=== PATIENT | female | born 1960 | race Caucasian/White ===

== ENCOUNTER 2019-04-08 14:16 | Emergency (ER) | payer SELFPAY ==
[2019-04-08] MEDS ORDERED: NA CHLORIDE 0.9% 1,000 ML ONE (15:36)
[2019-04-08] MEDS ORDERED: ONDANSETRON 4 MG/2 ML VIAL ONE (15:36)
[2019-04-08 16:07] LABS: Absolute Lymphocytes (CBC) 0.8 K/uL (0.7-4.9); Basophils % 0.2 % (0-1.3); Hematocrit 41.1 % (36.0-45.0); Lymphocytes % 7.6 % (15.3-44.8); MPV 9.2 fL (7.6-11.3)
[2019-04-08 16:10] LABS: Albumin 3.5 g/dL (3.4-5.0); Bilirubin Direct 0.5 mg/dL (0-0.2); Magnesium 2.1 mg/dL (1.8-2.4); Potassium 3.3 mmol/L (3.5-5.1); Protein, Total 6.9 g/dL (6.4-8.2)
--- NOTE | 2019-04-08 16:27 | RAD REPORT ---
EXAM DESCRIPTION: CT - Head Brain Wo Cont - 04/08/2019 4:20 pm CLINICAL HISTORY: Headache COMPARISON: None. TECHNIQUE: Axial 5 mm thick images of the head were obtained without IV contrast. All CT scans are performed using dose optimization technique as appropriate and may include automated exposure control or mA/KV adjustment according to patient size. FINDINGS: No intracranial hemorrhage, mass, edema or shift of mid-line structures. No acute infarcti on changes seen. No abnormal extra-axial fluid collections. No measurable atrophy changes. White jordon er disease is evident. There is evidence for old infarction change at the right head of the caudate. Ventricles are normal. Left side mastoid air cells are opacified. Right-sided mastoid air cells are clear. Partially visuali zed paranasal sinuses are clear. No acute bony findings. IMPRESSION: No hemorrhage, mass or acute intracranial finding. Chronic ischemic change and old infarction changes are evident. Chronic ischemic changes can mask nonhemorrhagic acute infarction. MR brain followup can be obtained if there is ongoing concern for acute ischemia.
--- NOTE | 2019-04-08 16:58 | RAD REPORT ---
EXAM DESCRIPTION: CT - Abdomen Pelvis W Contrast - 04/08/2019 4:29 pm CLINICAL HISTORY: ABD PAIN COMPARISON: None. TECHNIQUE: Biphasic, helical CT imaging of the abdomen and pelvis was performed following 100 ml non -ionic IV contrast. No oral contrast given. All CT scans are performed using dose optimization technique as appropriate and may include automated exposure control or mA/KV adjustment according to patient size. FINDINGS: No suspicious findings in the lung bases. Liver attenuation is borderline to mildly fatty infiltrated. No suspicious liver lesions identified. A low-density 18 millimeter liver masses present of the caudate lobe. This is favored to be a cyst bu t does not meet strict criteria. No portal vein abnormality. Cholecystectomy clips are present. No bi liary tree dilatation. No acute pancreatic finding. A 5 x 3 centimeter low-density mass is present in the anterior spleen. This is mostly fluid attenuati on but does have septations and few calcifications. No change between arterial and venous phase imagi ng. Long-term significance is doubtful. A 3 centimeter left adrenal mass is present. This does not me et strict criteria for adrenal adenoma diagnosis. Normal right renal function is seen with no hydronephrosis. Slightly delayed left renal function is p resent with perinephric stranding. Renal cysts are present. There is mild hydronephrosis secondary to a 3-4 mm near the UVJ. This may be more than 1 stone. No pyelonephritis findings pain. No bladder ab normalities. No dilated bowel loops or bowel wall thickening. No free air, free fluid or inflammatory stranding. No hernia, mass or bulky lymphadenopathy. No suspicious bony findings. No right ovary abnormality identified. Normal-sized uterus is seen. Along the left lateral margin of the uterus there is a 6 x 4 centimeter lobulated soft tissue density mass. A round coarse calcificati on is present in this mass. Along the posterior margin of the mass towards the cul de sac is a 6 x 4 centimeter thin-walled cystic mass. This appears be a contains cystic structure and not free fluid in the cul de sac. No acute bone finding. IMPRESSION: Approximately 3-4 millimeter calcification or stone cluster in the distal ureter near th e UVJ. Obstructing stone causes mild hydronephrosis and slightly delayed left renal function. A 6 centimeter lobulated solid mass in the left adnexa with adjacent 6 centimeter cystic mass identif ied. This is believed to be an ovarian origin solid and cystic mass collection. A separate normal lef t ovary is not seen. Exophytic uterine fibroid with left ovarian cyst would be a possible etiology. N o emergent component identified. This can be re-evaluated on outpatient pelvic sonography as warrante d. A 3 centimeter left adrenal mass is present. This is probably an adenoma but does not meet strict cri teria. 5 centimeter cystic or low-density septated mass in the anterior spleen. Long-term significance is do ubtful. Borderline to mild fatty infiltration of the liver. An 18 millimeter probable cyst is present near th e caudate lobe.
--- NOTE | 2019-04-08 17:13 | EKG ---
Test Date: 2019-04-08 Test Time: 15:33:19 Concrete Bucket Loader: ETELVINA MEASUREMENT RESULTS: Intervals: Rate: 77 ME: 166 QRSD: 94 QT: 432 QTc: 488 [place]: P: 29 ME: 166 QRS: -15 T: 18 INTERPRETIVE STATEMENTS: Normal sinus rhythm Nonspecific ST and T wave abnormality Prolonged QT Abnormal ECG No previous ECG available for comparison Electronically Signed On 04-08-19 17:12:31 CDT by Prem Cornejo
[2019-04-08] MEDS ORDERED: CEFTRIAXONE/SWI 1gm 1 GM/10 ML SYR ONE (17:30)
[2019-04-08] MEDS ORDERED: MAGNESIUM SULFATE 1 gm IVPB 1 GM/100 ML BAG IV ONE (17:30)
[2019-04-08] MEDS ORDERED: TAMSULOSIN 0.4 MG SR CAP ONE (17:30)
[2019-04-08] MEDS ORDERED: KETOROLAC 30 MG/ML INJ ONE (17:30)
[2019-04-08 17:38] LABS: Urine Blood 3+ (NEG); Urine Glucose NEGATIVE (NEG); Urine Protein TRACE (NEG); Urine pH 5.5 (5.0-7.0)
[2019-04-08 17:50] LABS: Urine Bacteria LOADED /HPF (<20); Urine Culture Reflex Order REFLEXED
--- NOTE | 2019-04-08 18:05 | EDPHYS ---
Physician Documentation [facility] Name: Bridget Brock Age: 59 yrs Sex: Female : 1960 Arrival Date: 04/08/2019 Time: 14:19 Bed 13 Private MD: ED Physician Miguel Law HPI: 04/08 15:35 This 59 yrs old Female presents to ER via Ambulatory with complaints of cp Vomiting, Flank Pain, Headache. 15:35 The patient complains of pain to the top of head and forehead. cp 15:35 The patient describes the headache as aching. The patient presents with abdominal pain cp left flank. Onset: The symptoms/episode began/occurred 2 day(s) ago. The patient presents to the emergency department with nausea, that is mild, vomiting, that is intermittent. Possible causes: unknown. The symptoms radiate to left hip. Historical: - Allergies: 14:27 Erythromycin; hb 14:27 Lisinopril; hb - Home Meds: 14:27 None [Active]; hb - PMHx: 14:27 Hypertension; Hypothyroidism; hb - PSHx: 14:27 Cholecystectomy; ; back; hb - Immunization history:: Adult Immunizations up to date. - Social history:: Smoking status: Patient uses tobacco products, smokes one pack cigarettes per day. - Ebola Screening: : No symptoms or risks identified at this time. ROS: 15:38 Constitutional: Positive for chills, Negative for body aches, fever, poor PO intake. cp 15:38 Eyes: Negative for injury, pain, redness, and discharge. cp 15:38 Cardiovascular: Negative for chest pain, edema, palpitations. cp 15:38 ENT: Negative for drainage from ear(s), ear pain, sore throat, difficulty swallowing, cp difficulty handling secretions. 15:38 Respiratory: Negative for cough, shortness of breath, wheezing. 15:38 Abdomen/GI: Positive for abdominal pain, nausea, vomiting, Negative for constipation, anorexia, black/tarry stool, rectal bleeding. 15:38 : Negative for urinary symptoms. 15:38 Neuro: Positive for headache, Negative for altered mental status, dizziness, weakness. 15:38 All other systems are negative. Exam: 15:40 ECG was reviewed by the Attending Physician. cp 15:45 Constitutional: The patient appears in no acute distress, alert, awake, cp non-diaphoretic, non-toxic, well developed, well nourished. 15:45 Head/Face: Normocephalic, atraumatic. cp 15:45 Eyes: Periorbital structures: appear normal, Conjunctiva: normal, no exudate, no injection, Sclera: no appreciated abnormality, Lids and lashes: appear normal, bilaterally. 15:45 ENT: External ear(s): are unremarkable, Ear canal(s): are normal, clear, TM's: dullness, bilaterally, Nose: is normal, Mouth: Lips: moist, Oral mucosa: moist, Posterior pharynx: is normal, airway is patent, no erythema, no exudate, Dental exam: dental caries, that is severe, diffusely, missing teeth, diffusely. 15:45 Neck: ROM/movement: is normal, is supple, without pain, no range of motions limitations, no meningismus, no nuchal rigidity. 15:45 Chest/axilla: Inspection: normal, Palpation: is normal, no crepitus, no tenderness. 15:45 Cardiovascular: Rate: normal, Rhythm: regular, Edema: is not appreciated, JVD: is not appreciated. 15:45 Respiratory: the patient does not display signs of respiratory distress, Respirations: normal, no use of accessory muscles, no retractions, no splinting, no tachypnea, labored breathing, is not present, Breath sounds: are clear throughout, no decreased breath sounds, no stridor, no wheezing. 15:45 Abdomen/GI: Inspection: abdomen appears normal, Bowel sounds: active, all quadrants, Palpation: soft, in all quadrants, voluntary guarding, is not appreciated, involuntary guarding, is not appreciated, very mild tenderness to palpation left side abdomen. 15:45 Back: CVA tenderness, is absent. 15:45 Skin: no rash present. 15:45 Neuro: Orientation: is normal, Mentation: is normal, Cerebellar function: is grossly normal, Motor: moves all fours, strength is normal, Sensation: is normal. Vital Signs: 14:24 BP 182 / 100; Pulse 82; Resp 16; Temp 99.2(TE); Pulse Ox 100% on R/A; Weight 99.79 kg; hb Height 5 ft. 7 in. (170.18 cm); Pain 5/10; 15:54 BP 148 / 90; Pulse 72; Resp 17; Pulse Ox 98% on R/A; tw2 16:42 BP 129 / 92; Pulse 114; Resp 17; Pulse Ox 100% on R/A; tw2 17:44 BP 165 / 87; Pulse 72; Resp 17; Pulse Ox 95% on R/A; tw2 18:49 BP 169 / 90; Pulse 73; Resp 17; Pulse Ox 100% on R/A; tw2 14:24 Body Mass Index 34.46 (99.79 kg, 170.18 cm) hb MDM: 15:29 Patient medically screened. cp 16:00 Differential diagnosis: diverticulitis, meningitis, migraine, non-specific abd pain, cp Pyelonephritis, Ureterolithiasis, urinary tract infection. 18:03 Data reviewed: vital signs, nurses notes, lab test result(s), radiologic studies, CT cp scan, and as a result, I will discharge patient. 18:03 Counseling: I had a detailed discussion with the patient and/or guardian regarding: the cp historical points, exam findings, and any diagnostic results supporting the discharge/admit diagnosis, lab results, radiology results, the need for outpatient follow up, an OB/Gyne specialist, a urologist, to return to the emergency department if symptoms worsen or persist or if there are any questions or concerns that arise at home. Response to treatment: the patient's symptoms have markedly improved after treatment, VSS. Pain improved. Discussed results of CT showing concern for ovarian mass. Will discharge to home for continued monitoring with instructions on need for FAMILY SERVICE COUNSELOR f/u and urology f/u . 04/08 15: Order name: Basic Metabolic Panel; Complete Time: 17:08 cp 04/08 17: Interpretation: Normal except: K 3.3; CL 108; GFR 59. cp 04/08 15:29 Order name: CBC with Diff cp 04/08 17:09 Interpretation: Normal except: RBC 5.00; RDW 16.5; FREDI% 87.6; LYM% 7.6; NEUT A 9.1. cp 04/08 15:29 Order name: Creatinine for Radiology; Complete Time: 17:08 cp 04/08 15:29 Order name: Hepatic Function; Complete Time: 17:08 cp 04/08 17: Interpretation: Normal except: AST 48; BILIT 2.0; BILID 0.5; A/G 1.0. cp 04/08 15:29 Order name: Lipase; Complete Time: 17:08 cp 04/08 15:29 Order name: Urine Microscopic Only; Complete Time: 18:06 cp 04/08 18:06 Interpretation: Normal except: UWBC LOADED; URBC 5-10; UBACT LOADED. cp 04/08 15:29 Order name: CT Head Brain wo Cont; Complete Time: 17:08 cp 04/08 15:29 Order name: CT Abd/Pelvis - IV Contrast Only; Complete Time: 17:08 cp 04/08 15:29 Order name: Magnesium; Complete Time: 17:08 cp 04/08 17:34 Order name: Urine Dipstick--Ancillary (enter results); Complete Time: 18:06 eb 04/08 18:06 Interpretation: Normal except: UBLD 3+; U NIT POSITIVE; UESTR 3+. 04/08 17:52 Order name: Urine Culture EDIA 04/08 15:29 Order name: IV Saline Lock; Complete Time: 15:46 cp 04/08 15:29 Order name: Labs collected and sent; Complete Time: 15:47 cp 04/08 15:29 Order name: Urine Dipstick-Ancillary (obtain specimen); Complete Time: 17:44 cp 04/08 15:29 Order name: EKG; Complete Time: 15:30 cp 04/08 15:29 Order name: EKG - Nurse/Tech; Complete Time: 15:34 cp EC:40 Rate is 77 beats/min. Rhythm is regular. [place] interval is normal. QRS interval is normal. cp QT interval is prolonged at 432 msec. Interpreted by me. Reviewed by me. Administered Medications: 15:43 Drug: Zofran 4 mg Route: IVP; Site: right forearm; tw2 15:48 Follow up: Response: No adverse reaction; Nausea is decreased tw2 15:46 Drug: NS 0.9% 1000 ml Route: IV; Rate: 1000 ml/hr; Site: right forearm; tw2 17:24 Follow up: IV Status: Completed infusion; IV Intake: 1000ml tw2 17:33 Drug: TORadol - Ketorolac 15 mg Route: IVP; Site: right forearm; tw2 18:15 Follow up: Response: No adverse reaction; Pain is decreased tw2 17:35 Drug: Rocephin - (cefTRIAXone) 1 grams {Note: IVP available only.} Route: IVPB; Infused tw2 Over: 5 mins; Site: right forearm; 17:40 Follow up: Response: No adverse reaction; IV Status: Completed infusion tw2 17:40 Follow up: Response: No adverse reaction; IV Status: Completed infusion tw2 17:37 Drug: Magnesium Sulfate 1 grams Route: IVPB; Infused Over: 1 hrs; Site: right forearm; tw2 18:40 Follow up: Response: No adverse reaction; IV Status: Completed infusion tw2 17:37 Drug: Flomax 0.4 mg Route: PO; tw2 17:48 Follow up: Response: No adverse reaction tw2 18:12 CANCELLED (unavaible): Potassium Chloride 40 mEq PO once tw2 18:15 Drug: Potassium Chloride 40 mEq Route: PO; tw2 18:48 Follow up: Response: No adverse reaction tw2 18:45 Drug: fentaNYL (PF) 25 mcg {Note: rass 0.} Route: IVP; Site: right forearm; tw2 18:53 Follow up: Response: No adverse reaction; Pain is decreased; RASS: Alert and Calm (0) tw2 Disposition: 04/08/19 18:04 Discharged to Home. Impression: Calculus of ureter - left, Intra-abdominal and pelvic swelling, mass and lump - left, Headache. - Condition is Stable. - Discharge Instructions: Kidney Stones, Renal Colic. - Prescriptions for Tylenol- Codeine #3 300-30 mg Oral Tablet - take 2 tablets by ORAL route every 6 hours As needed; 20 tablet. Zofran 4 mg Oral Tablet - take 1 tablet by ORAL route every 12 hours As needed; 20 tablet. Flomax 0.4 mg Oral Capsule, Sust. Release 24 hr - take 1 capsule by ORAL route once daily As needed 1/2 hour following the same meal each day; 5 capsule. Cipro 500 mg Oral Tablet - take 1 tablet by ORAL route every 12 hours for 7 days; 14 tablet. - Medication Reconciliation Form, Thank You Letter, Antibiotic Education, Prescription Opioid Use, Work release form, Family Work Release form. - Follow up: Chung Vigil MD; When: 2 - 3 days; Reason: continued or worsening left flank pain. Follow up: Valentina Apodaca MD; When: 1 week; Reason: abdominal mass. - Problem is new. - Symptoms have improved. Addendum: 04/10/2019 04:49 Co-signature as Attending Physician, Miguel Law MD. g s Signatures: Dispatcher [employer] EDMS Hunter Santos PA PA cp Stephanie Fagan, RN RN Tana Sosa RN RN tw2 Miguel Law MD MD Corrections: (The following items were deleted from the chart) 04/08 18:07 18:04 04/08/2019 18:04 Discharged to Home. Impression: Calculus of ureter - left; cp Intra-abdominal and pelvic swelling, mass and lump - left. Condition is Stable. Forms are Medication Reconciliation Form, Thank You Letter, Antibiotic Education, Prescription Opioid Use. Follow up: Chung Vigil; When: 2 - 3 days; Reason: continued or worsening left flank pain. Follow up: Valentina Apodaca; When: 1 week; Reason: abdominal mass. Problem is new. Symptoms have improved. cp 18:12 18:07 Potassium Chloride Liquid 40 mEq PO once ordered. cp tw2 18:55 18:07 04/08/2019 18:04 Discharged to Home. Impression: Calculus of ureter - left; tw2 Intra-abdominal and pelvic swelling, mass and lump - left; Headache. Condition is Stable. Discharge Instructions: Kidney Stones, Renal Colic. Prescriptions for Tylenol-Codeine #3 300-30 mg Oral Tablet - take 2 tablets by ORAL route every 6 hours As needed; 20 tablet, Zofran 4 mg Oral Tablet - take 1 tablet by ORAL route every 12 hours As needed; 20 tablet, Flomax 0.4 mg Oral Capsule, Sust. Release 24 hr - take 1 capsule by ORAL route once daily As needed 1/2 hour following the same meal each day; 5 capsule, Cipro 500 mg Oral Tablet - take 1 tablet by ORAL route every 12 hours for 7 days; 14 tablet. and Forms are Medication Reconciliation Form, Thank You Letter, Antibiotic Education, Prescription Opioid Use. Follow up: Chung Vigil; When: 2 - 3 days; Reason: continued or worsening left flank pain. Follow up: Valentina Apodaca; When: 1 week; Reason: abdominal mass. Problem is new. Symptoms have improved. cp
--- NOTE | 2019-04-08 18:05 | ER ---
Nurse's Notes [facility] Name: Bridget Brock Age: 59 yrs Sex: Female : 1960 Arrival Date: 04/08/2019 Time: 14:19 Bed 13 Private MD: Diagnosis: Calculus of ureter-left;Intra-abdominal and pelvic swelling, mass and lump-left;Headache Presentation: 04/08 14:23 Presenting complaint: V/V, chills, headache, left flank pain that radiates to left hip hb x 2 days. Not tolerating fluids. Denies urinary s/s. Transition of care: patient was not received from another setting of care. Onset of symptoms was April 07, 2019. Risk Assessment: Do you want to hurt yourself or someone else? Patient reports no desire to harm self or others. Care prior to arrival: None. 14:23 Method Of Arrival: Ambulatory hb 14:23 Acuity: NICKIE 3 hb 15:03 Initial Sepsis Screen: Does the patient meet any 2 criteria? No. Patient's initial tw2 sepsis screen is negative. Does the patient have a suspected source of infection? No. Patient's initial sepsis screen is negative. Triage Assessment: 15:03 General: Appears in no apparent distress. Behavior is calm, cooperative, appropriate tw2 for age. Pain: Complains of pain in abdomen and head. GI: Reports nausea, vomiting. Historical: - Allergies: 14:27 Erythromycin; hb 14:27 Lisinopril; hb - Home Meds: 14:27 None [Active]; hb - PMHx: 14:27 Hypertension; Hypothyroidism; hb - PSHx: 14:27 Cholecystectomy; ; back; hb - Immunization history:: Adult Immunizations up to date. - Social history:: Smoking status: Patient uses tobacco products, smokes one pack cigarettes per day. - Ebola Screening: : No symptoms or risks identified at this time. Screenin:03 Abuse screen: Denies threats or abuse. Nutritional screening: No deficits noted. tw2 Tuberculosis screening: No symptoms or risk factors identified. Fall Risk None identified. Assessment: 15:47 General: Appears in no apparent distress. Behavior is calm, cooperative, appropriate tw2 for age. General: Smells of cigarette smoke. Pain: Complains of pain in abdomen. Neuro: Level of Consciousness is awake, alert, obeys commands, Oriented to person, place, time, situation. Cardiovascular: Heart tones S1 S2 Patient's skin is warm and dry. Respiratory: Airway is patent Respiratory effort is even, unlabored, Respiratory pattern is regular, symmetrical, Breath sounds are clear bilaterally. GI: Abdomen is round non-distended, Bowel sounds present X 4 quads. GI: Reports nausea, vomiting. : No signs and/or symptoms were reported regarding the genitourinary system. EENT: No signs and/or symptoms were reported regarding the EENT system. Derm: No signs and/or symptoms reported regarding the dermatologic system. Musculoskeletal: Range of motion: intact in all extremities. 16:41 Reassessment: Patient appears in no apparent distress at this time. No changes from tw2 previously documented assessment. Patient and/or family updated on plan of care and expected duration. Pain level reassessed. Patient is alert, oriented x 3, equal unlabored respirations, skin warm/dry/pink. 17:40 Reassessment: Patient appears in no apparent distress at this time. No changes from tw2 previously documented assessment. Patient and/or family updated on plan of care and expected duration. Pain level reassessed. Patient is alert, oriented x 3, equal unlabored respirations, skin warm/dry/pink. 18:49 Reassessment: Patient appears in no apparent distress at this time. No changes from tw2 previously documented assessment. Patient and/or family updated on plan of care and expected duration. Pain level reassessed. Patient is alert, oriented x 3, equal unlabored respirations, skin warm/dry/pink. 18:54 Reassessment: Patient appears in no apparent distress at this time. No changes from tw2 previously documented assessment. Patient and/or family updated on plan of care and expected duration. Pain level reassessed. Patient is alert, oriented x 3, equal unlabored respirations, skin warm/dry/pink. Vital Signs: 14:24 BP 182 / 100; Pulse 82; Resp 16; Temp 99.2(TE); Pulse Ox 100% on R/A; Weight 99.79 kg; hb Height 5 ft. 7 in. (170.18 cm); Pain 5/10; 15:54 BP 148 / 90; Pulse 72; Resp 17; Pulse Ox 98% on R/A; tw2 16:42 BP 129 / 92; Pulse 114; Resp 17; Pulse Ox 100% on R/A; tw2 17:44 BP 165 / 87; Pulse 72; Resp 17; Pulse Ox 95% on R/A; tw2 18:49 BP 169 / 90; Pulse 73; Resp 17; Pulse Ox 100% on R/A; tw2 14:24 Body Mass Index 34.46 (99.79 kg, 170.18 cm) hb ED Course: 14:19 Patient arrived in ED. mr 14:24 Triage completed. hb 14:24 Arm band placed on. hb 15:03 Tana Sosa, RN is Primary Nurse. tw2 15:03 Bed in low position. Call light in reach. Adult w/ patient. tw2 15:13 Hunter Santos PA is PHCP. cp 15:13 Miguel Law MD is Attending Physician. cp 15:33 Radiology exam delayed due to lab results not completed at this time. (BUN/Creatinine). jg6 15:37 EKG done, by security tech. reviewed by Hunter STEELE. sm3 15:40 Inserted saline lock: 22 gauge in right forearm, using aseptic technique. Blood tw2 collected. 16:00 Radiology exam delayed due to lab results not completed at this time. (BUN/Creatinine). vm2 16:21 CT Head Brain wo Cont In Process Unspecified. EDMS 16:31 CT Abd/Pelvis - IV Contrast Only In Process Unspecified. EDMS 16:33 CT completed. Patient tolerated procedure well. Patient moved back from CT. jg6 17:44 Urine Microscopic Only Sent. tw2 18:02 Chung Vigil MD is Referral Physician. cp 18:03 Valentina Apodaca MD is Referral Physician. cp 18:04 Awaiting: completion of IV medication PRIOR to discharge. tw2 18:54 No provider procedures requiring assistance completed. IV discontinued, intact, tw2 bleeding controlled, No redness/swelling at site. Pressure dressing applied. Administered Medications: 15:43 Drug: Zofran 4 mg Route: IVP; Site: right forearm; tw2 15:48 Follow up: Response: No adverse reaction; Nausea is decreased tw2 15:46 Drug: NS 0.9% 1000 ml Route: IV; Rate: 1000 ml/hr; Site: right forearm; tw2 17:24 Follow up: IV Status: Completed infusion; IV Intake: 1000ml tw2 17:33 Drug: TORadol - Ketorolac 15 mg Route: IVP; Site: right forearm; tw2 18:15 Follow up: Response: No adverse reaction; Pain is decreased tw2 17:35 Drug: Rocephin - (cefTRIAXone) 1 grams {Note: IVP available only.} Route: IVPB; Infused tw2 Over: 5 mins; Site: right forearm; 17:40 Follow up: Response: No adverse reaction; IV Status: Completed infusion tw2 17:40 Follow up: Response: No adverse reaction; IV Status: Completed infusion tw2 17:37 Drug: Magnesium Sulfate 1 grams Route: IVPB; Infused Over: 1 hrs; Site: right forearm; tw2 18:40 Follow up: Response: No adverse reaction; IV Status: Completed infusion tw2 17:37 Drug: Flomax 0.4 mg Route: PO; tw2 17:48 Follow up: Response: No adverse reaction tw2 18:12 CANCELLED (unavaible): Potassium Chloride 40 mEq PO once tw2 18:15 Drug: Potassium Chloride 40 mEq Route: PO; tw2 18:48 Follow up: Response: No adverse reaction tw2 18:45 Drug: fentaNYL (PF) 25 mcg {Note: rass 0.} Route: IVP; Site: right forearm; tw2 18:53 Follow up: Response: No adverse reaction; Pain is decreased; RASS: Alert and Calm (0) tw2 Intake: 17:24 IV: 1000ml; Total: 1000ml. tw2 Outcome: 18:04 Discharge ordered by . cp 18:54 Discharged to home ambulatory, with family. tw2 18:54 Condition: stable 18:54 Discharge instructions given to patient, family, Instructed on discharge instructions, follow up and referral plans. no drinking with medication, no driving heavy equipment, medication usage, Demonstrated understanding of instructions, follow-up care, medications, Prescriptions given X 4. 18:55 Patient left the ED. tw2 Addendum: 04/11/2019 07:58 Addendum: Culture Results: Positive urine culture. No further action required. Bacteria s s sensitive to prescribed antibiotic. Signatures: Dispatcher [facility] Britt Jacinto RN RN Hunter Foss PA PA cp Baxter, Heather, RN RN hb Tana Sosa RN RN tw2 Yesica Santacruz 2 Jessenia Duvall 3 Cherie Bahena6
[2019-04-08] MEDS ORDERED: POTASSIUM CL SA 10 MEQ TAB PO ONE (18:13)
[2019-04-08] MEDS ORDERED: FENTANYL CITR 100 MCG/2 ML ONE (18:45)
[2019-04-08 19:14] VITALS: TEMP 99.2
[2019-04-08 19:18] VITALS: BP 169/90; O2SAT 100
[2019-04-08 20:15] LABS: Platelet Estimate ADEQ
[2019-04-08 20:16] LABS: Blood Morphology Comment NOT SEEN (NOT SEEN)
== END 2019-04-08 18:55 | disposition home or self-care (01) ==
LOC: ER 14:16
DX: N20.1 Calculus of ureter (principal); R19.00 Intra-abdominal and pelvic swelling, mass and lump, unspecified site; I10 Essential (primary) hypertension; F17.210 Nicotine dependence, cigarettes, uncomplicated; Z88.3 Allergy status to other anti-infective agents; Z88.8 Allergy status to other drugs, medicaments and biological substances
CPT/HCPCS: 36415; 70450; 74177; 80048; 80076; 81003; 81015; 83690; 83735; 85025; 87077; 87086; 87088; 87186; 93005; 96361; 96365; 96375; 99284; J0696; J2405; J3010; J3475; J7030; Q9967

== ENCOUNTER 2020-10-02 12:41 | Emergency (ER) | payer BC, SELFPAY ==
--- NOTE | 2020-10-02 14:23 | RAD REPORT ---
EXAM DESCRIPTION: CT - Head Brain Wo Cont - 10/02/2020 2:15 pm CLINICAL HISTORY: HEADACHE Headache, drowsiness COMPARISON: Head Brain Wo Cont dated 04/08/2019 TECHNIQUE: All CT scans are performed using dose optimization technique as appropriate and may inclu de automated exposure control or mA/KV adjustment according to patient size. FINDINGS: No intracranial hemorrhage, hydrocephalus or extra-axial fluid collection.Mild generalized brain atrophy is present with mild periventricular and deep white matter chronic microvascular ische wu changes.No areas of brain edema or evidence of midline shift. The paranasal sinuses and mastoids are clear. The calvarium is intact. IMPRESSION: No acute intracranial abnormality.
[2020-10-02 14:57] LABS: Urine Blood Trace-lysed (Negative); Urine Glucose Negative (Negative); Urine Protein Negative (Negative); Urine Specific Gravity 1.015 (1.005-1.030); Urine pH 6.5 (5.0-7.0)
[2020-10-02 14:59] LABS: Absolute Lymphocytes (CBC) 2.4 K/uL (0.7-4.9); Basophils % 0.9 % (0-1.3); Hematocrit 46.3 % (36.0-45.0); Lymphocytes % 29.2 % (15.3-44.8); MPV 8.6 fL (7.6-11.3); RBC Red Blood Cell Count 5.42 M/uL (3.86-4.86)
[2020-10-02 15:14] LABS: Protime INR 0.97
--- NOTE | 2020-10-02 15:19 | RAD REPORT ---
EXAM DESCRIPTION: RAD - Chest Single View - 10/02/2020 2:48 pm CLINICAL HISTORY: Hypertensive;Chest pain Chest pain. COMPARISON: No comparisons FINDINGS: Portable technique limits examination quality. The lungs are grossly clear. The heart is mildly enlarged in size. No displaced fractures. IMPRESSION: No acute intrathoracic process suspected.
[2020-10-02 15:56] LABS: Albumin 3.7 g/dL (3.4-5.0); Bilirubin Direct 0.1 mg/dL (0-0.2); Bilirubin Total 0.8 mg/dL (0.2-1.0); Magnesium 2.4 mg/dL (1.8-2.4); Potassium 3.7 mmol/L (3.5-5.1); Protein, Total 7.5 g/dL (6.4-8.2); Troponin (Emerg Dept Use Only) 0.04 ng/mL (0.0-0.045)
--- NOTE | 2020-10-02 16:17 | EDPHYS ---
Physician Documentation [facility] Name: Bridget Brock Age: 60 yrs Sex: Female : 1960 Arrival Date: 10/02/2020 Time: 12:49 Bed 13 Private MD: ED Physician Beltran Greco HPI: 10/02 14:05 This 60 yrs old Female presents to ER via Ambulatory with complaints of Nose pm1 Bleed, Headache. 14:05 The patient presents with a nose bleed, that is apparently anterior, from both nares, pm1 occurred from an unknown cause, that is intermittent causative factors include: hypertension, and the bleeding resolved prior to arrival. Onset: The symptoms/episode began/occurred last night. Modifying factors: The symptoms are alleviated by pressure, the symptoms are aggravated by Lack of compliance with blood pressure medications. Associated signs and symptoms: Pertinent positives: Headache, Pertinent negatives: blurred vision, chest pain, cough, ear ache, fever, lightheadedness, nausea, shortness of breath, sore throat. Severity of symptoms: in the emergency department the symptoms have improved nose bleeding resolved. Headache present to forehead. The patient has experienced similar episodes in the past, a few times. The patient has been recently seen by a physician: with similar presenting complaints, lab tests were done, given a blood pressure medication in the clinic and then prescribed her medications that she has not been taking for the past year. She did not start taking her prescriptions yet. Historical: - Allergies: 12:56 Erythromycin; ll1 12:56 Lisinopril; ll1 - PMHx: 12:56 Hypertension; Hypothyroidism; ll1 - PSHx: 12:56 Cholecystectomy; ; back; cataract repair; Angioplasty; ll1 - Immunization history:: Flu vaccine is not up to date. - Social history:: Smoking status: Patient reports the use of cigarette tobacco products, smokes one pack cigarettes per day. ROS: 14:05 Constitutional: Negative for fever, chills, and weight loss, Eyes: Negative for injury, pm1 pain, redness, and discharge. 14:05 Neck: Negative for injury, pain, and swelling, Cardiovascular: Negative for chest pain, palpitations, and edema, Respiratory: Negative for shortness of breath, cough, wheezing, and pleuritic chest pain, Abdomen/GI: Negative for abdominal pain, nausea, vomiting, diarrhea, and constipation, Back: Negative for injury and pain, MS/Extremity: Negative for injury and deformity, Skin: Negative for injury, rash, and discoloration. 14:05 ENT: Positive for nose bleed, Negative for ear pain, sore throat, difficulty swallowing, difficulty handling secretions, hoarseness. 14:05 Neuro: Positive for headache, Negative for numbness, tingling, weakness. Exam: 14:05 Constitutional: This is a well developed, well nourished patient who is awake, alert, pm1 and in no acute distress. Head/Face: Normocephalic, atraumatic. 14:05 Neck: Trachea midline, no thyromegaly or masses palpated, and no cervical lymphadenopathy. Supple, full range of motion without nuchal rigidity, or vertebral point tenderness. No Meningismus. 14:05 Back: No spinal tenderness. No costovertebral tenderness. Full range of motion. Skin: Warm, dry with normal turgor. Normal color with no rashes, no lesions, and no evidence of cellulitis. MS/ Extremity: Pulses equal, no cyanosis. Neurovascular intact. Full, normal range of motion. 14:05 ENT: External ear(s): are unremarkable, Ear canal(s): are normal, TM's: are normal, Nose: clotted blood, in both nares. 14:05 Cardiovascular: Exam negative for acute changes, Rate: normal, Rhythm: regular, Pulses: no pulse deficits are appreciated. 14:05 Respiratory: Exam negative for acute changes, respiratory distress, shortness of breath. 14:05 Neuro: Exam negative for acute changes, Orientation: is normal, Mentation: is normal, Motor: is normal, moves all fours. Vital Signs: 12:56 BP 243 / 128; Pulse 65; Resp 18; Temp 97.4; Pulse Ox 100% ; Weight 106.59 kg; Height 5 ll1 ft. 7 in. (170.18 cm); Pain 5/10; 14:05 BP 192 / 104; Pulse 57; Resp 16; Pulse Ox 98% on R/A; vg1 15:24 BP 169 / 98; Pulse 61; Resp 18; Pulse Ox 97% on R/A; vg1 12:56 Body Mass Index 36.81 (106.59 kg, 170.18 cm) ll1 MDM: 13:47 Patient medically screened. pm1 16:15 Data reviewed: vital signs. Data interpreted: Pulse oximetry: on room air is 97 %. pm1 Interpretation: normal. Counseling: I had a detailed discussion with the patient and/or guardian regarding: the historical points, exam findings, and any diagnostic results supporting the discharge/admit diagnosis, lab results, radiology results, the need for outpatient follow up, an ENT specialist, a family practitioner, to return to the emergency department if symptoms worsen or persist or if there are any questions or concerns that arise at home. 10/02 14:02 Order name: Basic Metabolic Panel pm1 10/02 14:02 Order name: CBC with Diff; Complete Time: 15:20 pm1 10/02 14:02 Order name: LFT's; Complete Time: 16:14 pm1 10/02 14:02 Order name: Magnesium; Complete Time: 16:14 pm1 10/02 14:02 Order name: NT PRO-BNP; Complete Time: 16:14 pm1 10/02 14:02 Order name: PT-INR; Complete Time: 15:20 pm1 10/02 14:02 Order name: Troponin (emerg Dept Use Only); Complete Time: 16:14 pm1 10/02 14:02 Order name: XRAY Chest (1 view); Complete Time: 15:30 pm1 10/02 14:02 Order name: EKG; Complete Time: 14:03 pm1 10/02 14:02 Order name: Cardiac monitoring; Complete Time: 14:45 pm1 10/02 14:02 Order name: EKG - Nurse/Tech; Complete Time: 14:13 pm1 10/02 14:02 Order name: CT Head Brain wo Cont; Complete Time: 14:57 pm1 10/02 14:03 Order name: Basic Metabolic Panel; Complete Time: 16:14 EDMS 10/02 14:56 Order name: Urine Dipstick-Ancillary; Complete Time: 15:20 EDMS 10/02 14:02 Order name: IV Saline Lock; Complete Time: 14:45 pm1 10/02 14:02 Order name: Labs collected and sent; Complete Time: 14:45 pm1 10/02 14:02 Order name: O2 Per Protocol; Complete Time: 14:29 pm1 10/02 14:02 Order name: O2 Sat Monitoring; Complete Time: 14:29 pm1 10/02 14:02 Order name: Urine Dipstick-Ancillary (obtain specimen); Complete Time: 15:16 pm1 Administered Medications: No medications were administered Disposition: 16:57 Co-signature as Attending Physician, Beltran Greco MD. rn Disposition: 10/02/20 16:16 Discharged to Home. Impression: Essential (primary) hypertension, Patient's noncompliance with medical treatment and regimen, Epistaxis, Headache. - Condition is Stable. - Discharge Instructions: Nosebleed, Adult, General Headache Without Cause, Hypertension, How to Take Your Blood Pressure, Tpau-or-Gpmm, DASH Eating Plan, Managing Your Hypertension. - Work release form, Medication Reconciliation Form, Thank You Letter, Antibiotic Education, Prescription Opioid Use form. - Follow up: Emergency Department; When: As needed; Reason: Worsening of condition. Follow up: Private Physician; When: 2 - 3 days; Reason: Recheck today's complaints, Continuance of care, Re-evaluation by your physician. - Problem is new. - Symptoms have improved. Signatures: Dispatcher [employer] EDBeltran Lira MD MD rn Marinas, Patrick, CAR[employer] MAP DRAFTER pm1 Yesica Bahena RN RN vg1 Claudia Navarrete RN RN ll1 Corrections: (The following items were deleted from the chart) 16:55 16:16 10/02/2020 16:16 Discharged to Home. Impression: Essential (primary) vg1 hypertension; Patient's noncompliance with medical treatment and regimen; Epistaxis; Headache. Condition is Stable. Forms are Medication Reconciliation Form, Thank You Letter, Antibiotic Education, Prescription Opioid Use. Follow up: Emergency Department; When: As needed; Reason: Worsening of condition. Follow up: Private Physician; When: 2 - 3 days; Reason: Recheck today's complaints, Continuance of care, Re-evaluation by your physician. Problem is new. Symptoms have improved. pm1
--- NOTE | 2020-10-02 16:17 | ER ---
Nurse's Notes [facility] Name: Bridget Brock Age: 60 yrs Sex: Female : 1960 Arrival Date: 10/02/2020 Time: 12:49 Bed 13 Private MD: Diagnosis: Essential (primary) hypertension;Patient's noncompliance with medical treatment and regimen;Epistaxis;Headache Presentation: 10/02 12:56 Chief complaint: Patient states: Nasal bleeding and ASTUDILLO since last night. BP very ll1 elevated. Hasn't taken BP pills in about 1 year. Coronavirus screen: Client denies travel out of the [place] in the last 14 days. At this time, the client does not indicate any symptoms associated with coronavirus-19. Ebola Screen: Patient denies travel to an Ebola-affected area in the 21 days before illness onset. Initial Sepsis Screen: Does the patient meet any 2 criteria? No. Patient's initial sepsis screen is negative. Does the patient have a suspected source of infection? No. Patient's initial sepsis screen is negative. Risk Assessment: Do you want to hurt yourself or someone else? Patient reports no desire to harm self or others. Onset of symptoms was October 01, 2020. 12:56 Method Of Arrival: Ambulatory ll1 12:56 Acuity: NICKIE 2 ll1 Historical: - Allergies: 12:56 Erythromycin; ll1 12:56 Lisinopril; ll1 - PMHx: 12:56 Hypertension; Hypothyroidism; ll1 - PSHx: 12:56 Cholecystectomy; ; back; cataract repair; Angioplasty; ll1 - Immunization history:: Flu vaccine is not up to date. - Social history:: Smoking status: Patient reports the use of cigarette tobacco products, smokes one pack cigarettes per day. Screenin:12 Abuse screen: Denies threats or abuse. Nutritional screening: No deficits noted. vg1 Tuberculosis screening: No symptoms or risk factors identified. Fall Risk No fall in past 12 months (0 pts). No secondary diagnosis (0 pts). IV access (20 points). Ambulatory Aid- None/Bed Rest/Nurse Assist (0 pts). Gait- Normal/Bed Rest/Wheelchair (0 pts) Mental Status- Oriented to own ability (0 pts). Total Foreman Fall Scale indicates No Risk (0-24 pts). Assessment: 13:57 General: Appears in no apparent distress. comfortable, Behavior is calm, cooperative. vg1 Pain: Complains of pain in c/o headache Pain currently is 5 out of 10 on a pain scale. Pain began 2-3 days ago. Neuro: Level of Consciousness is awake, alert, obeys commands, Oriented to person, place, time, situation. Cardiovascular: Patient's skin is warm and dry. Respiratory: Airway is patent Respiratory effort is even, unlabored, Respiratory pattern is regular, symmetrical. GI: No signs and/or symptoms were reported involving the gastrointestinal system. : No signs and/or symptoms were reported regarding the genitourinary system. EENT: Reports nose bleed. Derm: Skin is intact, is healthy with good turgor. Musculoskeletal: Circulation, motion, and sensation intact. 15:27 Reassessment: Patient appears in no apparent distress at this time. Patient and/or vg1 family updated on plan of care and expected duration. Pain level reassessed. Patient is alert, oriented x 3, equal unlabored respirations, skin warm/dry/pink. Patient is alert/active/playful, equal unlabored respirations, skin warm/dry/pink. Vital Signs: 12:56 BP 243 / 128; Pulse 65; Resp 18; Temp 97.4; Pulse Ox 100% ; Weight 106.59 kg; Height 5 ll1 ft. 7 in. (170.18 cm); Pain 5/10; 14:05 BP 192 / 104; Pulse 57; Resp 16; Pulse Ox 98% on R/A; vg1 15:24 BP 169 / 98; Pulse 61; Resp 18; Pulse Ox 97% on R/A; vg1 12:56 Body Mass Index 36.81 (106.59 kg, 170.18 cm) ll1 ED Course: 12:49 Patient arrived in ED. mr 12:56 Arm band placed on Patient notified of wait time. ll1 12:59 Triage completed. ll1 13:46 Hawk Arizmendi NP is PHCP. pm1 13:46 Beltran Greco MD is Attending Physician. pm1 13:57 Yesica Bahena, RN is Primary Nurse. vg1 14:12 Patient has correct armband on for positive identification. Placed in gown. Bed in low vg1 position. Call light in reach. Side rails up X 1. 14:[address] via wheelchair. vg1 14:15 CT Head Brain wo Cont In Process Unspecified. EDMS 14:45 Initial lab(s) drawn, by me, sent to lab. Inserted saline lock: 20 gauge in left vg1 antecubital area, using aseptic technique. Blood collected. 14:48 XRAY Chest (1 view) In Process Unspecified. EDMS 14:53 Basic Metabolic Panel Sent. sv 16:54 No provider procedures requiring assistance completed. IV discontinued, intact, vg1 bleeding controlled, No redness/swelling at site. Pressure dressing applied. Administered Medications: No medications were administered Outcome: 16:16 Discharge ordered by MD. pm1 16:54 Discharged to home ambulatory. vg1 16:54 Condition: good 16:54 Discharge instructions given to patient, Instructed on discharge instructions, follow up and referral plans. medication usage, Demonstrated understanding of instructions, follow-up care. 16:55 Patient left the ED. 1 Signatures: Dispatcher [employer] EDAnu Peters, JOLANTA RN Miriam Bates Patrick, ENERGY PROJECT ENGINEER ENERGY PROJECT ENGINEER pm1 Yesica Bahena, JOLANTA RN vg1 Claudia Navarrete, RN RN ll1
[2020-10-02 17:49] VITALS: TEMP 97.4
[2020-10-02 17:52] VITALS: BP 169/98; O2SAT 97
--- NOTE | 2020-10-03 12:49 | EKG ---
Test Date: 2020-10-02 Test Time: 14:09:26 Radio Interference Expert: JUAN MEASUREMENT RESULTS: Intervals: Rate: 54 MS: 164 QRSD: 98 QT: 496 QTc: 470 [place]: P: 26 MS: 164 QRS: -34 T: 67 INTERPRETIVE STATEMENTS: Sinus bradycardia Left axis deviation Minimal voltage criteria for LVH, may be normal variant Nonspecific T wave abnormality Prolonged QT Abnormal ECG Compared to ECG 04/08/2019 15:33:19 Left-axis deviation now present Left ventricular hypertrophy now present T-wave abnormality now present Sinus rhythm no longer present ST (T wave) deviation no longer present Electronically Signed On 10-03-20 12:45:42 CDT by Prem Cornejo
== END 2020-10-02 16:55 | disposition home or self-care (01) ==
LOC: ER 12:41
DX: I10 Essential (primary) hypertension (principal); Z91.14 Patient's other noncompliance with medication regimen; R04.0 Epistaxis; F17.210 Nicotine dependence, cigarettes, uncomplicated; Z88.3 Allergy status to other anti-infective agents; Z88.8 Allergy status to other drugs, medicaments and biological substances
CPT/HCPCS: 36415; 70450; 71045; 80048; 80076; 81003; 83735; 83880; 84484; 85025; 85610; 93005; 99284

== ENCOUNTER → 2023-06-17 | Emergency (ER) | payer BC ==
--- NOTE | 2023-06-17 15:54 | RAD REPORT ---
EXAM DESCRIPTION: CT - Ct Stroke Brain Wo Cont - 06/17/2023 3:41 pm CLINICAL HISTORY: Slurred speech COMPARISON: 2020 TECHNIQUE: Computed axial tomography of the head was obtained. All CT scans are performed using dose optimization technique as appropriate and may include automated exposure control or mA/KV adjustment according to patient size. FINDINGS: An intracranial bleed is not seen . The ventricles are normal in caliber. No extra-axial fluid collection is noted. 12 millimeter low-density area has developed within the left basal ganglia. Bold right basal ganglia infarction. Mild to moderate low-density periventricular, deep and subcortical white matter likely ischemic flores es secondary to small vessel disease. Tiny lipoma abuts left tentorium Chronic left mastoiditis IMPRESSION: 12 millimeter low-density area within the left basal ganglia has developed since 2020. I t is compatible with infarct. It is uncertain if this is acute/subacute MRI Brain recommended Dr De Luna of the emergency room was notified at 3:45 p.m. June 17, 2023
--- NOTE | 2023-06-17 15:57 | RAD REPORT ---
EXAM DESCRIPTION: Jose Single View06/17/2023 3:45 pm CLINICAL HISTORY: Slurred speech COMPARISON: 2020 FINDINGS: The lungs appear clear of acute infiltrate. The heart is mildly to moderately enlarged IMPRESSION: No acute abnormalities displayed
[2023-06-17 16:08] LABS: Absolute Lymphocytes (CBC) 1.8 K/uL (0.7-4.9); Hematocrit 45.4 % (36.0-45.0); Lymphocytes % 21.4 % (15.3-44.8); MCV 82.9 fL (80-100); MPV 8.8 fL (7.6-11.3); Platelets 212 thou/uL (152-406); RBC Red Blood Cell Count 5.48 M/uL (3.86-4.86)
[2023-06-17 16:15] LABS: Protime INR 1.08
[2023-06-17 16:28] LABS: Potassium 3.4 mEq/L (3.5-5.1)
[2023-06-17 16:30] LABS: Troponin High Sensitivity 274.6 pg/mL (<58.9)
--- NOTE | 2023-06-17 16:45 | ER ---
Nurse's Notes [facility] Name: Bridget Brock Age: 63 yrs Sex: Female : 1960 Arrival Date: 06/17/2023 Time: 15:08 Bed 15 Private MD: Diagnosis: Left basal ganglia ischemic CVA;Dysarthria following cerebral infarction;NSTEMI;Hypertension Presentation: 06/17 15:19 Chief complaint: Patient states: SLURRED SPEECH x2 DAYS. Coronavirus screen: At this bp time, the client does not indicate any symptoms associated with coronavirus-19. Ebola Screen: No symptoms or risks identified at this time. No acute neurological deficit is noted. Pre-hospital glucose is not applicable to this patient. Initial Sepsis Screen: Does the patient meet any 2 criteria? No. Patient's initial sepsis screen is negative. Does the patient have a suspected source of infection? No. Patient's initial sepsis screen is negative. Risk Assessment: Do you want to hurt yourself or someone else? Patient reports no desire to harm self or others. Onset of symptoms is unknown. 15:19 Method Of Arrival: Wheelchair bp 15:19 Acuity: NICKIE 2 bp Triage Assessment: 15:20 The onset of the patients symptoms was June 15, 2023 at 18:00. General: Appears in bp no apparent distress. Behavior is calm, cooperative. Pain: Denies pain. Neuro: Reports SLURRED SPEECH. Stroke Activation: Symptom onset > 6 hours Physician: Stroke Attending; Name: ; Notified At: ; Arrived At: Physician: Chief Stroke Resident; Name: ; Notified At: ; Arrived At: Physician: Stroke Resident; Name: ; Notified At: ; Arrived At: Physician: ED Attending; Name: ; Notified At: ; Arrived At: Physician: ED Resident; Name: ; Notified At: ; Arrived At: Historical: - Allergies: 15:20 Erythromycin; bp 15:20 Lisinopril; bp - PMHx: 15:20 Hypertension; Hypothyroidism; bp - Immunization history:: Adult Immunizations up to date. - Social history:: Smoking status: Patient denies any tobacco usage or history of. Screenin:15 [facility] ED Fall Risk Assessment (Adult) History of falling in the last 3 months, rs5 including since admission No falls in past 3 months (0 pts) Confusion or Disorientation No (0 pts) Intoxicated or Sedated No (0 pts) Impaired Gait Yes (1 pt) Mobility Assist Device Used Yes (1 pt) Altered Elimination No (0 pt) Score/Fall Risk Level 0 - 2 = Low Risk Oriented to surroundings, Maintained a safe environment. 15:15 Abuse screen: Denies threats or abuse. Nutritional screening: No deficits noted. rs5 Tuberculosis screening: No symptoms or risk factors identified. Assessment: 15:45 Reassessment: Pt returned from CT scan. rs5 15:45 General: Appears in no apparent distress. comfortable, Behavior is calm, cooperative. rs5 Pain: Denies pain. Neuro: Level of Consciousness is awake, alert, obeys commands, Oriented to person, place, time, situation. Neuro: Lumber Sorter are equal bilaterally Moves all extremities. Full function Gait is unsteady, Speech is slurred, Facial droop on right, Facial symmetry: tongue is midline, Pupils are PERRLA, Pupil Size: 3 mm Intact. Cardiovascular: Heart tones S1 S2 present Patient's skin is warm and dry. Rhythm is regular. Respiratory: Airway is patent Respiratory effort is even, unlabored, Respiratory pattern is regular, symmetrical, Breath sounds are clear bilaterally. GI: Abdomen is round non-distended, Bowel sounds present X 4 quads. Abd is soft and non tender X 4 quads. Patient currently denies nausea, pain, vomiting. : No signs and/or symptoms were reported regarding the genitourinary system. EENT: No signs and/or symptoms were reported regarding the EENT system. Derm: Skin is intact, Skin is pink, warm \\T\\ dry. Musculoskeletal: Circulation, motion, and sensation intact. Capillary refill < 3 seconds, is brisk, in bilateral fingers. toes. Range of motion: intact in all extremities. 15:45 VAN Scoring: Arm Drift: Patients demonstrates NO arm weakness. Patient is VAN Negative. rs5 Visual Disturbance: No visual disturbance noted. Aphasia: No aphasia noted. Neglect: No neglect noted. 15:45 [place] Swallow Protocol Brief Cognitive Screen What is your name? Normal, Where are you rs5 right now? Normal, What year is it? Normal. Oral Mechanism Examination Facial Symmetry: Normal, Motion: Normal, Lip Closure: Normal, Oral Mechanism Result: Normal. 3 oz Water Swallow Challenge: Pt able to drink all water without stopping, coughing, choking or throat clearing: Yes Result: PASS MD Notified: Clif De Luna DO. TNKase (Tenecteplase) Screening: Contraindications: Patient reports onset of signs and symptoms of stroke greater than 6 hours ago: Yes. 16:31 Reassessment: Patient and/or family updated on plan of care and expected duration. Pain rs5 level reassessed. Patient is alert, oriented x 3, equal unlabored respirations, skin warm/dry/pink. Neuro: Level of Consciousness is awake, alert, obeys commands, Oriented to person, place, time, situation, Lumber Sorter are equal bilaterally Moves all extremities. Full function Speech is slurred, Facial droop on right, Pupils are PERRLA, Intact. 16:35 Reassessment: Family at bedside, pt states "I don't want to be here anymore, I want to rs5 leave" provider notified . 17:00 Reassessment: Pt signed AMA form. rs5 Vital Signs: 15:19 BP 228 / 113; Pulse 60; Resp 16; Temp 98; Pulse Ox 98% ; Weight 104.33 kg; bp 16:00 BP 184 / 110; Pulse 58; Resp 18; Pulse Ox 99% on R/A; rs5 16:23 BP 197 / 111; Pulse 57; Resp 17; Pulse Ox 99% on R/A; rs5 NIH Stroke Scale Scores: 15:45 NIHSS Score: 3 rs5 16:00 NIHSS Score: 2 ms3 ED Course: 15:10 Patient arrived in ED. rg4 15:13 Clif De Luna DO is Attending Physician. ms3 15:15 Patient has correct armband on for positive identification. Placed in gown. Bed in low rs5 position. Call light in reach. Side rails up X2. 15:20 Triage completed. bp 15:20 Arm band placed on. bp 15:28 Radiology exam delayed due to patient in bathroom at this time. nj 15:34 Bowen Sanz, JOLANTA is Primary Nurse. rs5 15:[address] via wheelchair. nj 15:40 CT completed. Patient tolerated procedure well. nj 15:40 Patient moved back from CT. nj 15:43 CT Stroke Brain w/o Contrast In Process Unspecified. EDMS 15:47 Stroke CXR 1 View In Process Unspecified. EDMS 15:50 Inserted saline lock: 22 gauge in left antecubital area, using aseptic technique. Blood rs5 collected. 16:43 Jose L Forrest MD is Referral Physician. ms3 17:00 No provider procedures requiring assistance completed. rs5 17:00 IV discontinued, intact, bleeding controlled, No redness/swelling at site. Pressure rs5 dressing applied. 17:04 Primary Nurse role handed off by Bowen Sanz RN ms3 Administered Medications: No medications were administered Medication: 17:00 VIS not applicable for this client. rs5 Outcome: 16:53 Patient left the ED. rs5 17:00 Discharged to home ambulatory, rs5 17:00 Condition: stable 17:00 Discharge instructions given to patient, Instructed on discharge instructions, follow up and referral plans. Demonstrated understanding of instructions, follow-up care, 17:05 Patient left the ED. ms3 NIH Stroke Scale - NIH Stroke Score Date: 06/17/2023 Time: 15:45 Total Score = 3 10. Dysarthria (speech clarity - read or repeat words) - 1(Mild to Moderate) 11. Extinction and Inattention (visual/tactile/auditory/spatial/personal) - 0(No abnormality) 1a. Level of Consciousness (LOC) - 0(Alert) 1b. Level of Consciousness (LOC) (Month \\T\\ Age) - 0(Both) 1c. LOC Commands (Open \\T\\ Closes Eyes/Prototype Model Maker) - 0(Both) 2. Best Gaze (Lateral Gaze Paresis) - 0(Normal) 3. Visual Field Loss - 0(No visual loss) 4. Facial Palsy - 1(Minor Paralysis) 5a. Left Arm: Motor (10-second hold) - 0(No drift) 5b. Right Arm: Motor (10-second hold) - 0(No drift) 6a. Left Leg: Motor (5-second hold - always test supine) - 0(No drift) 6b. Right Leg: Motor (5-second hold - always test supine) - 0(No drift) 7. Limb Ataxia (finger/nose \\T\\ heel/maloney - test with eyes open) - 0(Absent) 8. Sensory Loss (pinprick arms/legs/face) - 0(Normal) 9. Best Language: Aphasia (description/naming/reading) - 1(Mild to moderate aphasia) Initials: rs5 NIH Stroke Scale - NIH Stroke Score Date: 06/17/2023 Time: 16:00 Total Score = 2 10. Dysarthria (speech clarity - read or repeat words) - 1(Mild to Moderate) 11. Extinction and Inattention (visual/tactile/auditory/spatial/personal) - 0(No abnormality) 1a. Level of Consciousness (LOC) - 0(Alert) 1b. Level of Consciousness (LOC) (Month \\T\\ Age) - 0(Both) 1c. LOC Commands (Open \\T\\ Closes Eyes/Prototype Model Maker) - 0(Both) 2. Best Gaze (Lateral Gaze Paresis) - 0(Normal) 3. Visual Field Loss - 0(No visual loss) 4. Facial Palsy - 1(Minor Paralysis) 5a. Left Arm: Motor (10-second hold) - 0(No drift) 5b. Right Arm: Motor (10-second hold) - 0(No drift) 6a. Left Leg: Motor (5-second hold - always test supine) - 0(No drift) 6b. Right Leg: Motor (5-second hold - always test supine) - 0(No drift) 7. Limb Ataxia (finger/nose \\T\\ heel/maloney - test with eyes open) - 0(Absent) 8. Sensory Loss (pinprick arms/legs/face) - 0(Normal) 9. Best Language: Aphasia (description/naming/reading) - 0(No aphasia) Initials: ms3 Signatures: Dispatcher [employer] Deanne Hankins4 Damon Brooks Brian RN RN bp Clif De Luna DO DO ms3 Bowen Sanz RN RN rs5 Corrections: (The following items were deleted from the chart) 15:40 15:30 Radiology exam delayed due to in bathroom at time mello sarkar
--- NOTE | 2023-06-17 16:45 | EDPHYS ---
Physician Documentation [facility] Name: Bridget Brock Age: 63 yrs Sex: Female : 1960 Arrival Date: 06/17/2023 Time: 15:08 Bed 15 Private MD: ED Physician Clif De Luna HPI: 06/17 15:24 This 63 yrs old Female presents to ER via Wheelchair with complaints of Slurred Speech, ms3 Fatigue. 15:24 63-year-old female with past medical history of hypertension, hypothyroidism presents ms3 to the emergency department for slurred speech and right facial droop. Patient states she has had difficulty finding words for 2 days and became worse yesterday. Patient's son notes patient's right facial droop became worse today as well. Patient denies headache, nausea, vomiting, pain. Historical: - Allergies: 15:20 Erythromycin; bp 15:20 Lisinopril; bp - PMHx: 15:20 Hypertension; Hypothyroidism; bp - Immunization history:: Adult Immunizations up to date. - Social history:: Smoking status: Patient denies any tobacco usage or history of. ROS: 15:24 Constitutional: Negative for fever, and chills. Neck: Negative for injury, pain, and ms3 swelling, Cardiovascular: Negative for chest pain, and palpitations. Respiratory: Negative for shortness of breath, cough, wheezing, and pleuritic chest pain, Abdomen/GI: Negative for abdominal pain, nausea, vomiting, diarrhea, and constipation, MS/Extremity: Negative for injury and deformity, 15:24 Neuro: Positive for Difficulty with word finding, 15:24 All other systems are negative, Exam: 15:24 Constitutional: This is a well developed, well nourished patient who is awake, alert, ms3 and in no acute distress. Head/Face: Normocephalic, atraumatic. Neck: Trachea midline, no cervical lymphadenopathy. Supple, full range of motion without nuchal rigidity, or vertebral point tenderness. No Meningismus. Chest/axilla: Normal chest wall appearance and motion. Nontender with no deformity. Cardiovascular: Regular rate and rhythm with a normal S1 and S2. No gallops, murmurs, or rubs. Normal PMI, no JVD. No pulse deficits. Respiratory: Lungs have equal breath sounds bilaterally, clear to auscultation and percussion. No rales, rhonchi or wheezes noted. No increased work of breathing, no retractions or nasal flaring. Abdomen/GI: Soft, non-tender, with normal bowel sounds. No distension or tympany. No guarding or rebound. No evidence of tenderness throughout. Skin: Warm, dry with normal turgor. Normal color with no rashes, no lesions, and no evidence of cellulitis. MS/ Extremity: Pulses equal, no cyanosis. Neurovascular intact. Full, normal range of motion. 15:24 Neuro: Orientation: is normal, Mentation: is normal, Memory: is normal, Cerebellar function: is grossly normal, normal finger to nose testing, Motor: is normal, Sensation: is normal, Difficulty finding words, 16:00 ECG was reviewed by the Attending Physician. ms3 Vital Signs: 15:19 BP 228 / 113; Pulse 60; Resp 16; Temp 98; Pulse Ox 98% ; Weight 104.33 kg; bp 16:00 BP 184 / 110; Pulse 58; Resp 18; Pulse Ox 99% on R/A; rs5 16:23 BP 197 / 111; Pulse 57; Resp 17; Pulse Ox 99% on R/A; rs5 NIH Stroke Scale Scores: 15:45 NIHSS Score: 3 rs5 16:00 NIHSS Score: 2 ms3 MDM: 15:41 Patient medically screened. ms3 16:46 Data reviewed: vital signs, nurses notes, radiologic studies, CT scan, and as a result, ms3 I will patient and family would like to leave AMA. Consideration of Admission/Observation Escalation of care including admission/observation considered. Management of patient was discussed with the following: Hospitalist: Lefty Girard NP. Independent interpretation of the following test(s) in the Emergency Department EKG: See my EKG interpretation above. Historians other than the Patient: Daughter/Son: Son and daughter. Counseling: I had a detailed discussion with the patient and/or guardian regarding the historical points, exam findings, and any diagnostic results supporting the discharge/admit diagnosis, lab results, radiology results, the need for further work-up and treatment in the hospital, Patient and daughter state they would like to leave AMA. Refusal of service: The patient/guardian displays adequate decision making capability and despite a detailed discussion of alternatives, benefits, risks, and consequences refuses: Admission to the hospital for further work-up and treatment. ED course: Discussed admission with patient and that Hospitalist [employer]HW[employer] MAINTENANCE CREW WORKER would be coming to see her for admission. HIGHWAY MAINTENANCE CREW WORKER after entering the room informed me patient would like to leave AMA. Discussed with patient and her family it appears on CT that she has had a left basal ganglia stroke and elevated troponin and needs admission. Discussed risks of leaving AMA to include worsening symptoms, disability, or . She and her family understand risks. Offered patient transfer to her hospital of choice and family declines transfer as they will take her elsewhere. Discussed with patient and her family that I have discussed her case with Neurology, Dr Forrest, and have an MRI ordered. They decline and would like to leave. . ED course: Patient has decided to leave our facility AGAINST MEDICAL ADVICE. I have assessed the patient's ability to make an informed decision and it is my opinion at this time that the patient has the medical decision-making capacity to comprehend information regarding current medical condition and appreciates the impact of the disease or condition and the consequences of various options for treatment, including foregoing treatment. The patient possesses the ability to evaluate all treatment options, compare the risk and benefits of each option, communicate choice and is able to make rational choices. I have explained to the patient further testing, treatment, and evaluation I would like to perform during the current emergency department visit as well as any possible alternatives that could be accomplished in a timely manner. I have outlined the possible risk of foregoing any or all of these interventions and the patient understands and acknowledges that the decision to leave may result in undesirable consequences such as , permanent disability, and/or loss of current lifestyle. Even though leaving AMA a is not ideal, I have instructed the patient to follow any discharge instructions given and resume care as soon as possible with another provider. Additionally, I have clearly stated that the patient is welcome to return at any time to continue care at our facility.. 06/17 15:23 Order name: Basic Metabolic Panel; Complete Time: 16:32 ms3 06/17 15:23 Order name: CBC with Diff; Complete Time: 16:30 ms3 06/17 15:23 Order name: High Sensitivity Troponin; Complete Time: 16:32 ms3 06/17 15:23 Order name: Protime (+inr); Complete Time: 16:30 ms3 06/17 15:23 Order name: Ptt, Activated; Complete Time: 16:30 ms3 06/17 15:23 Order name: CT Stroke Brain w/o Contrast; Complete Time: 16:30 ms3 06/17 15:23 Order name: Stroke CXR 1 View; Complete Time: 16:30 ms3 06/17 15:23 Order name: EKG; Complete Time: 15:24 ms3 06/17 15:23 Order name: Accucheck; Complete Time: 16:23 ms3 06/17 15:23 Order name: Cardiac monitoring; Complete Time: 16:23 ms3 06/17 15:23 Order name: EKG - Nurse/Tech; Complete Time: 16:23 ms3 06/17 15:23 Order name: IV Saline Lock; Complete Time: 16:23 ms3 06/17 15:23 Order name: Labs collected and sent; Complete Time: 16:23 ms3 06/17 15:23 Order name: NPO; Complete Time: 16:23 ms3 06/17 15:23 Order name: O2 Per Protocol; Complete Time: 16:23 ms3 06/17 15:23 Order name: O2 Sat Monitoring; Complete Time: 16:23 ms3 06/17 15:23 Order name: Stroke Swallow Screen; Complete Time: 16:23 ms3 EC:00 Rate is 55 beats/min. Rhythm is regular. QRS [place] is Normal. [place] interval is normal. QRS ms3 interval is normal. Clinical impression: Sinus bradycardia. Interpreted by me. Reviewed by me. Administered Medications: No medications were administered Disposition Summary: 06/17/23 16:45 Left Against Medical Advice Notes: Location: Home ms3 Problem: new ms3 Symptoms: are unchanged ms3 Condition: Stable ms3 Diagnosis - Left basal ganglia ischemic CVA ms3 - Dysarthria following cerebral infarction ms3 - NSTEMI ms3 - Hypertension ms3 Discharge Instructions: - Discharge Summary Sheet ms3 - Rehabilitation After a Stroke, Adult ms3 NIH Stroke Scale - NIH Stroke Score Date: 06/17/2023 Time: 15:45 Total Score = 3 10. Dysarthria (speech clarity - read or repeat words) - 1(Mild to Moderate) 11. Extinction and Inattention (visual/tactile/auditory/spatial/personal) - 0(No abnormality) 1a. Level of Consciousness (LOC) - 0(Alert) 1b. Level of Consciousness (LOC) (Month \T\ Age) - 0(Both) 1c. LOC Commands (Open \T\ Closes Eyes/Population Health Coach) - 0(Both) 2. Best Gaze (Lateral Gaze Paresis) - 0(Normal) 3. Visual Field Loss - 0(No visual loss) 4. Facial Palsy - 1(Minor Paralysis) 5a. Left Arm: Motor (10-second hold) - 0(No drift) 5b. Right Arm: Motor (10-second hold) - 0(No drift) 6a. Left Leg: Motor (5-second hold - always test supine) - 0(No drift) 6b. Right Leg: Motor (5-second hold - always test supine) - 0(No drift) 7. Limb Ataxia (finger/nose \T\ heel/maloney - test with eyes open) - 0(Absent) 8. Sensory Loss (pinprick arms/legs/face) - 0(Normal) 9. Best Language: Aphasia (description/naming/reading) - 1(Mild to moderate aphasia) Initials: rs5 NIH Stroke Scale - NIH Stroke Score Date: 06/17/2023 Time: 16:00 Total Score = 2 10. Dysarthria (speech clarity - read or repeat words) - 1(Mild to Moderate) 11. Extinction and Inattention (visual/tactile/auditory/spatial/personal) - 0(No abnormality) 1a. Level of Consciousness (LOC) - 0(Alert) 1b. Level of Consciousness (LOC) (Month \T\ Age) - 0(Both) 1c. LOC Commands (Open \T\ Closes Eyes/Population Health Coach) - 0(Both) 2. Best Gaze (Lateral Gaze Paresis) - 0(Normal) 3. Visual Field Loss - 0(No visual loss) 4. Facial Palsy - 1(Minor Paralysis) 5a. Left Arm: Motor (10-second hold) - 0(No drift) 5b. Right Arm: Motor (10-second hold) - 0(No drift) 6a. Left Leg: Motor (5-second hold - always test supine) - 0(No drift) 6b. Right Leg: Motor (5-second hold - always test supine) - 0(No drift) 7. Limb Ataxia (finger/nose \T\ heel/maloney - test with eyes open) - 0(Absent) 8. Sensory Loss (pinprick arms/legs/face) - 0(Normal) 9. Best Language: Aphasia (description/naming/reading) - 0(No aphasia) Initials: ms3 Signatures: Dispatcher [employer] Sesar Baker, RN RN Clif Weaver, DO ms3
[2023-06-17 18:12] VITALS: TEMP 98
[2023-06-17 18:16] VITALS: O2SAT 99
[2023-06-17 18:21] VITALS: BP 197/111
--- NOTE | 2023-06-19 15:13 | EKG ---
Test Date: 2023-06-17 Test Time: 16:00:50 Relief Map Modeler: ABIGAIL MEASUREMENT RESULTS: Intervals: Rate: 55 DC: 170 QRSD: 102 QT: 484 QTc: 463 Vinson: P: 50 DC: 170 QRS: -9 T: 245 INTERPRETIVE STATEMENTS: Sinus bradycardia ST & T wave abnormality, consider inferolateral ischemia Abnormal ECG Compared to ECG 10/02/2020 14:09:26 ST (T wave) deviation now present Possible ischemia now present Left-axis deviation no longer present Left ventricular hypertrophy no longer present T-wave abnormality no longer present Prolonged QT interval no longer present Electronically Signed On 06-19-23 15:09:[address] TR[address] PLANNING MANAGER [address]
== END ==
LOC: ER 15:08
DX: I63.89 Other cerebral infarction (principal); I21.4 Non-ST elevation (NSTEMI) myocardial infarction; I69.322 Dysarthria following cerebral infarction; I10 Essential (primary) hypertension; R29.703 NIHSS score 3; Z88.3 Allergy status to other anti-infective agents; Z88.8 Allergy status to other drugs, medicaments and biological substances
CPT/HCPCS: 36415; 70450; 71045; 80048; 84484; 85025; 85610; 85730; 93005; 99285